=== PATIENT | male | born 2000 | race Caucasian/White ===

== ENCOUNTER 2019-03-24 20:07 | Emergency (ER) | payer OTHER ==
[2019-03-24 20:29] VITALS: BP 149/88
[2019-03-24] MEDS ORDERED: Ibuprofen TAB* 600 MG PO ONE (20:36)
[2019-03-24 21:30] LABS: Influenza A Molecular Negative (Negative); Influenza B Molecular Negative (Negative)
--- NOTE | 2019-03-24 21:49 | UC ---
FLU HPI - HPI Summary HPI Summary: 19-year-old male comes in with chief complaint of fever headache or any aches neck pain and feeling ill. He did have a cough yesterday however today he got a lot sicker with the fever the body aches and headache. No complaint of any ear pain or sore throat. No complaint of shortness of breath. Reports posterior neck pain and a generalized headache. Denies any midline back pain. Feels like the neck pain is worse than the rest of his myalgias. Has not taken any [id number] medications. He was given ibuprofen 600 mg by mouth here in clinic. - History of Current Complaint Chief Complaint: UCRespiratory Stated Complaint: COUGH Time Seen by Provider: 03/24/19 21:36 Pain Intensity: 5 - Allergy/Home Medications Allergies/Adverse Reactions: Allergies Allergy/AdvReac Type Severity Reaction Status Date / Time No Known Allergies Allergy Verified 03/24/19 20:29 Home Medications: Home Medications Gabapentin [Neurontin] 100 mg PO DAILY 03/24/19 [History Confirmed 03/24/19] PMH/Surg Hx/FS Hx/Imm Hx Previously Healthy: Yes Psychological History: Anxiety - Surgical History Surgical History: None - Family History Known Family History: Positive: Non-Contributory - Social History Alcohol Use: None Substance Use Type: None Smoking Status (MU): Never Smoked Tobacco Review of Systems All Other Systems Reviewed And Are Negative: Yes Constitutional: Positive: Fever, Chills, Fatigue, Other - SEE HPI Skin: Positive: Negative Eyes: Positive: Negative ENT: Positive: Nasal Discharge - MILD Respiratory: Positive: Negative Cardiovascular: Positive: Negative Gastrointestinal: Positive: Negative Motor: Positive: Negative Neurovascular: Positive: Negative Musculoskeletal: Positive: Myalgia Neurological: Positive: Headache Psychological: Positive: Negative Is Patient Immunocompromised?: No Physical Exam Triage Information Reviewed: Yes Appearance: No Pain Distress, Well-Nourished, Ill-Appearing - MILD Vital Signs: Initial Vital Signs Temp 101.8 F 03/24/19 20:24 Pulse 143 03/24/19 20:24 Resp 16 03/24/19 20:24 BP 149/88 03/24/19 20:24 Pulse Ox 99 03/24/19 20:24 Vital Signs Reviewed: Yes Eye Exam: Normal Eyes: Positive: Conjunctiva Clear ENT: Positive: Pharynx normal, TMs normal Neck: Positive: Other: - Patient reports posterior neck pain. When he flexes his neck and extends the neck it does increase the pain in the neck. Respiratory: Positive: Lungs clear, Normal breath sounds, No respiratory distress Cardiovascular: Positive: Tachycardia Musculoskeletal: Positive: Strength Intact, ROM Intact Neurological: Positive: Alert, Muscle Tone Normal Psychological: Positive: Age Appropriate Behavior Skin Exam: Normal Flu Course/Dx - Course Course Of Treatment: Due to the constellation of high fever headache and neck pain with negative strep and negative influenza I cannot rule out the possibility of meningitis therefore I recommended further evaluation in the emergency department. Patient was not given any antibiotics or antivirals here in clinic. - Differential Dx/Diagnosis Provider Diagnosis: Fever, Headache, Neck pain Discharge ED - Sign-Out/Discharge Documenting (check all that apply): Patient Departure All imaging exams completed and their final reports reviewed: No Studies - Discharge Plan Condition: Stable Disposition: HOME-RECOMMEND TO ED Prescriptions: Amoxicillin/Clavulanate TAB* [Augmentin TAB 875*] 875 mg PO BID #20 tab Patient Education Materials: Fever in Adults (ED) Referrals: [facility] [Provider Group] Additional Instructions: GO DIRECTLY TO THE EMERGENCY DEPARTMENT FOR FURTHER EVALUATION OF YOUR FEVER, HEADACHE AND NECK PAIN. - Billing Disposition and Condition Condition: STABLE Disposition: Home-Recommend to ED
== END 2019-03-24 21:56 | disposition home health service (06) ==
LOC: UCEAST 20:07
DX: R50.9 Fever, unspecified (principal); R51 Headache; M54.2 Cervicalgia; F41.9 Anxiety disorder, unspecified; J34.89 Other specified disorders of nose and nasal sinuses; M79.10 Myalgia, unspecified site; R53.83 Other fatigue; Z79.899 Other long term (current) drug therapy
CPT/HCPCS: 87651; 99202; A9270-GY; G0463

== ENCOUNTER 2019-03-24 22:18 | Emergency (ER) | payer OTHER ==
--- NOTE | 2019-03-25 00:26 | ED ---
Influenza-Like Illness - HPI Summary HPI Summary: 19 year old M [facility] complains of cough that started 03/23/2019 PM, fever that started yesterday 2019 AM, and fatigue, chills, myalgia, mild headache, mild neck pain that started throughout the day yesterday 03/24/2019. No SOB, CP, abdominal pain, dizziness, light headedness, nausea/vomiting/diarrhea, decreased appetite, dysuria. The patient rates the pain 4/10 in severity. Symptoms aggravated by nothing. Symptoms alleviated by Tylenol. Had flu and strep tests done which were negative per patient. Patient states he was given ibuprofen at [facility] which alleviated his fever. Medications reviewed. Hx anxiety. Patient started taking gabapentin 03/23/2019 PM. - History of Current Complaint Chief Complaint: EDFever Time Seen by Provider: 03/25/19 00:18 Hx Obtained From: Patient Onset/Duration: Lasting Days, Still Present Severity: Moderate - Allergy/Home Medications Allergies/Adverse Reactions: Allergies Allergy/AdvReac Type Severity Reaction Status Date / Time No Known Allergies Allergy Verified 03/25/19 02:08 PMH/Surg Hx/FS Hx/Imm Hx Endocrine/Hematology History: Denies: Hx Diabetes Cardiovascular History: Denies: Hx Hypertension Psychiatric History: Reports: Hx Anxiety - Surgical History Surgical History: None Infectious Disease History: No Infectious Disease History: Denies: Traveled Outside the [place] in Last 30 Days - Family History Known Family History: Negative: Diabetes - Social History Alcohol Use: None Substance Use Type: Reports: None Hx Tobacco Use: No Smoking Status (MU): Never Smoked Tobacco Review of Systems Positive: Fever, Chills Positive: Cough Gastrointestinal: Negative - decreased appetite Negative: Abdominal Pain, Vomiting, Diarrhea, Nausea Negative: dysuria Positive: Myalgia, Other - neck pain Neurological: Negative - Dizziness, light headedness Positive: Headache All Other Systems Reviewed And Are Negative: Yes Physical Exam - Summary Physical Exam Summary: Appearance: Well-appearing, Well-nourished, lying in bed comfortably Skin: Warm, dry, no obvious rash Eyes: sclera anicteric, no conjunctival pallor ENT: mucous membranes moist, pharynx appears normal Neck: Supple, nontender; no meningeal signs, he is able to fully extend and rotate his neck, no Kernig's sign or Brudzinski's sign Respiratory: Clear to auscultation, no signs of respiratory distress Cardiovascular: Normal S1, S2. No murmurs. Normal distal pulses in tibial and radial bilaterally. Abdomen: Soft, nontender, normal active bowel sounds present Musculoskeletal: Normal, Strength/ROM Intact Neurological: A&Ox3, awake and alert, mentation is normal, speech is fluent and appropriate Psychiatric: affect is normal, does not appear anxious or depressed Triage Information Reviewed: Yes Vital Signs On Initial Exam: Initial Vitals Temp Pulse Resp BP Pulse Ox 100.8 F 137 20 97/75 98 03/24/19 22:22 03/24/19 22:22 03/24/19 22:22 03/24/19 22:22 03/24/19 22:22 Vital Signs Reviewed: Yes Procedures - Sedation Patient Received Moderate/Deep Sedation with Procedure: No Diagnostics - Vital Signs Vital Signs Temp Pulse Resp BP Pulse Ox 03/24/19 22:22 100.8 F 137 20 97/75 98 - Laboratory Result Diagrams: 03/25/19 00:40 03/25/19 00:40 Lab Statement: Any lab studies that have been ordered have been reviewed, and results considered in the medical decision making process. - Radiology CXR Radiology Interpretation Completed By: ED Physician - NO ACUTE PROCESS pending official report Re-Evaluation - Re-Evaluation First Eval Re-Evaluation Time: 01:53 Comment: patient agrees to d/c Flu Symptom Course/Dx - Course Course Of Treatment: 19 y/o M presenting from [facility] c/o cough that started 03/23/2019 PM, fever that started yesterday 03/24/2019 AM, and fatigue, chills, myalgia, mild headache, mild neck pain that started throughout the day yesterday 03/24/2019. No SOB, CP, abdominal pain, dizziness, light headedness, nausea/vomiting/diarrhea, decreased appetite, dysuria. Had flu and strep tests done which were negative per patient. Patient states he was given ibuprofen at [facility] which alleviated his fever. Medications reviewed. Neck exam is normal. No meningeal signs, he is able to fully extend and rotate his neck, no Kernig's sign or Brudzinski's sign. Bloodwork results with no significant abnormalities except for RBC 5.49, absolute lymphs 0.9, absolute monos 0.9, potassium 3.2, chloride 100, anion gap 12, ALT 54, CRP 15.45. Urinalysis results with no significant abnormalities except for trace ketones. CXR shows no acute process. Patient will be discharged home with follow up from [facility] in 2 days. Patient was instructed to return to Emergency Department for new or worsening symptoms. Patient understands and is agreeable to this plan. - Diagnoses Provider Diagnoses: Fever Discharge ED - Sign-Out/Discharge Documenting (check all that apply): Patient Departure - Discharge Plan Condition: Good Disposition: HOME Patient Education Materials: Fever in Adults (ED) Referrals: [facility] - [place] VEGA [Primary Care Provider] - 2 Days (if not better) - Billing Disposition and Condition Condition: GOOD Disposition: Home - Attestation Statements Document Initiated by Yvrose: Yes Documenting Scribe: Riri Jose Provider For Whom Yvrose is Documenting (Include Credential): Carlos Alberto Huynh MD Scribe Attestation: IRiri, scribed for Carlos Alberto Huynh MD on 03/28/19 at 0627. Scribe Documentation Reviewed: Yes Provider Attestation: The documentation as recorded by the Riri ibanez accurately reflects the service I personally performed and the decisions made by me, Carlos Alberto Huynh MD Status of Scribe Document: Viewed
[2019-03-25 00:50] LABS: ABS Lymphocytes 0.9 10^3/ul (1.0-4.8); ABS Monocytes 0.9 10^3/ul (0-0.8); ABS Neutrophils 7.5 10^3/ul (1.5-7.7); Hematocrit 44 % (42-52); Hemoglobin 15.2 g/dL (14.0-18.0); Mean Corpuscular HGB Conc 34 g/dL (31-36); Mean Corpuscular Hemoglobin 28 pg (27-31); Mean Corpuscular Volume 81 fL (80-94); Mean Platelet Volume 7.8 fL (7.4-10.4); Nucleated Red Blood Cells % 0.1; Platelet Count 251 10^3/uL (150-450); Red Blood Count 5.49 10^6 /uL (4.18-5.48); Red Cell Distribution Width 13 % (10-15); White Blood Count 9.4 10^3/uL (3.5-10.8)
[2019-03-25 01:07] LABS: Albumin 4.6 g/dL (3.2-5.2); Albumin/Globulin Ratio 1.6 (1-3); BUN/Creatinine Ratio 12.6 (8-20); C Reactive Protein 15.45 mg/L (<8.01); Calcium 9.6 mg/dL (8.6-10.3); EGFR African American 111.4 (>60); EGFR Non-African American 92.1 (>60); Globulin 2.9 g/dL (2-4); Potassium 3.2 mmol/L (3.5-5.0); Total Bilirubin 0.8 mg/dL (0.2-1.0); Total Protein 7.5 g/dL (6.4-8.9)
[2019-03-25 01:22] LABS: Urine Appearance Clear; Urine Bilirubin Negative (Negative); Urine Blood Negative (Negative); Urine Color Yellow; Urine Glucose Negative (Negative); Urine Ketones Trace (Negative); Urine Nitrite Negative (Negative); Urine Protein Negative (Negative); Urine Specific Gravity 1.012 (1.010-1.030); Urine Urobilinogen Negative (Negative)
[2019-03-25 01:51] VITALS: BP 133/79
== END 2019-03-25 01:55 | disposition home or self-care (01) ==
LOC: ED 22:18
DX: R50.9 Fever, unspecified (principal); R05 Cough; M54.2 Cervicalgia; R51 Headache; F41.9 Anxiety disorder, unspecified
CPT/HCPCS: 36415; 71046; 80053; 81003; 85025; 86140; 87040; 99282